=== PATIENT | male | born 1950 | race Caucasian/White ===

== ENCOUNTER 2018-11-12 09:09 | Emergency (ER) | payer BC, MEDICARE ==
--- NOTE | 2018-11-12 09:33 | UC ---
General HPI - HPI Summary HPI Summary: 68 yo gentleman presents to [facility] c/o numbness funny feeling in L low lip last evening. Not sure if primary or if possibly related to having had topical numbing medicine on finger and touched lip. However, this morning noted R ( contralateral) facial weakness, numbness, can't close eye completely, prompting him to drive here. Took alleve x 1 approx 8am (with power bar and water). No n /a, vis / aud changes. No rash. No GI issues. No sob / cp. Was [place] the [place] 2 weeks ago, developed short lived "flu like" symptoms, but did not notice a tick or rash. Hx chicken pox mid 20's. Fam hx father dec (+ cad + ca + tob). No loc. - History of Current Complaint Stated Complaint: NUMBNESS IN LIP,TROUBLE SMILING Time Seen by Provider: 11/12/18 09:15 Hx Obtained From: Patient - Allergy/Home Medications Allergies/Adverse Reactions: Allergies Allergy/AdvReac Type Severity Reaction Status Date / Time ciprofloxacin Allergy Muscle Ache Verified 11/12/18 09:49 levaquin Allergy Muscle Ache Uncoded 11/12/18 09:49 seasonal allergies Allergy Runny Nose Uncoded 04/26/15 12:48 Home Medications: Home Medications Naproxen Sodium [Naproxen 220 mg] 220 mg PO SEE INSTRUCTIONS PRN 11/12/18 [ History Confirmed 11/12/18] PMH/Surg Hx/FS Hx/Imm Hx Previously Healthy: Yes - Surgical History Surgical History: Yes Surgery Procedure, Year, and Place: Polypectomy, nose, [facility] Dr Islas - Family History Known Family History: Positive: Cardiac Disease - Social History Alcohol Use: Daily Alcohol Amount: glass of red wine daily Substance Use Type: None Smoking Status (MU): Never Smoked Tobacco - Immunization History Most Recent Influenza Vaccination: Fall 2014 Review of Systems All Other Systems Reviewed And Are Negative: Yes Constitutional: Positive: Other - see hpi Skin: Positive: Negative Eyes: Positive: Other - see hpi ENT: Positive: Other - see hpi Respiratory: Positive: Negative Cardiovascular: Positive: Negative Gastrointestinal: Positive: Negative Genitourinary: Positive: Negative Motor: Positive: Other - see hpi Neurovascular: Positive: Other - see hpi Musculoskeletal: Positive: Other: - see hpi Neurological: Positive: Other - see hpi Psychological: Positive: Negative Is Patient Immunocompromised?: No Physical Exam Triage Information Reviewed: Yes Appearance: Well-Appearing, Well-Nourished Vital Signs Reviewed: Yes Eye Exam: Other - perrla eomi sw cp, no nystagmus fundi grossly benign ENT Exam: Other - R facial droop, R eye does not close complete, eye is a little watery. Sens to LT x facial dermatomes is presents to both R and L ( without subjective dysesthesia). Forehead is wrinkled bilaterally, although there appears to be some forehead sparing. Able to bite down and swallow ok. Tongue protrudes well, and to both sides. ENT: Positive: Pharynx normal, TMs normal, Other - mmm Neck exam: Normal Neck: Positive: Supple, Nontender, No Lymphadenopathy Respiratory Exam: Normal Respiratory: Positive: Chest non-tender, Lungs clear, Normal breath sounds, No respiratory distress Cardiovascular Exam: Normal Cardiovascular: Positive: RRR, No Murmur, Pulses Normal, Brisk Capillary Refill Abdominal Exam: Normal Abdomen Description: Positive: Nontender Musculoskeletal Exam: Other - see facial exam. Neurological Exam: Other - Self-ambulated (walked) in to [facility]. Moves x 4 ext's equally. Ax n sens LT is present. Good hand grasp, "ok" index and 5th fingers. Distal sens LT present BLE strength incl great toe dorsi plantar flexion good. Some venous varicosities, but wtihout sign edema. CN-s 1-12 present (incl + smell to alcohol swab), with the exception of facial droop as above Psychological Exam: Normal Skin Exam: Normal - no visible or reported rash. nondiaphoretic Course/Dx - Course Course Of Treatment: EKG sr at 82 bpm, lad. low votage, ext leas. pr 160 qtc 427 no old for comp S/sx are concerning - R facial droop, with some forehead sparing. However, there was the presence of contralateral sx on L side last evening (Resolved). C /n exclude acute stroke, mass, atypical robertson's palsy, viral, even tick borne ( see hpi). Recommend transfer to ED. Mr. Henning carefully considered this, and agrees to go to ED via EMS. (EMS is necessary d/t possible stroke with time to treatment paramount, also possible deterioration if pov en routine which could be detrimental to him or other drivers). I spoke with CHANTELL Rutledge at [facility] ED prior to pt's departure. - Diagnoses Provider Diagnosis: Facial droop Discharge - Sign-Out/Discharge Documenting (check all that apply): Patient Departure All imaging exams completed and their final reports reviewed: No Studies - Discharge Plan Condition: Guarded Disposition: ADMITTED TO [facility] Referrals: Drake Marinelli MD [Primary Care Provider] - - Billing Disposition and Condition Condition: GUARDED Disposition: Admitted to [facility]
[2018-11-12] MEDS ORDERED: Aspirin 81 mg CHEW TAB* 81 MG TAB.CHEW PO ONE ×2 (09:58→11:17)
[2018-11-12 10:11] VITALS: BP 122/75
[2018-11-13] MEDS ORDERED: Aspirin 81 mg CHEW TAB* 81 MG TAB.CHEW PO SCH (09:00)
== END 2018-11-12 09:56 | disposition short-term general hospital (02) ==
LOC: UCCORT 09:09
DX: R29.810 Facial weakness (principal)
CPT/HCPCS: 93005; 99214; A9270-GY; G0463

== ENCOUNTER 2018-11-12 10:49 | Emergency (ER) | payer MEDICARE, BC ==
--- NOTE | 2018-11-12 11:20 | ED ---
Complex/Multi-Sys Presentation - HPI Summary HPI Summary: This pt is a 68 y/o male presenting to [facility] via EMS from [facility] c/o numbness in left lower lip 2 days ago and since last night right sided facial weakness and numbness. Pt reports he was using Icy Hot with lidocaine and he might have rubbed some of it on his left lower lip 2 days ago. He denies any other symptoms associated with this numbness 2 days ago and states numbness was very localized. Pt states numbness on left lower lip resolved within 12 hours. He notes that last night he first noticed his smile wasn't symmetrical. This morning he noticed he couldn't wink with his right eye, unable to fully close right eye. Pt states his daughter is a speech therapist and this morning he was monitoring his chewing and tongue. He reports he is usually able to whistle but now is not able to. Denies headache, fever, chills, rash, difficulty ambulating , difficulty moving arms or legs. Pt denies erythema of eyes, sore throat, CP, SOB, cough, abd pain, nausea, vomiting, dysuria, hematuria, myalgia, edema, rash , or dizziness. He denies any tick exposure recently. He has had tick exposure in the past but not any this year. Pt was in the [facility] 2 weeks ago for 10 days and notes he had "flu-like" symptoms towards the beginning of his stay. PMHx arthritis at hips, chicken pox at age 27. - History Of Current Complaint Hx Obtained From: Patient Onset/Duration: Lasting Hours, Still Present Timing: Hours Severity Currently: Mild Aggravating Factor(s): nothing Alleviating Factor(s): nothing Associated Signs And Symptoms: Positive: Weakness, Other - NEGATIVE: chills, rash, difficulty ambulating, difficulty moving arms or legs, erythema of eyes, sore throat, dysuria, hematuria, mylagia, edema, dizziness.. Negative: SOB, Cough, Chest Pain, Nausea, Vomiting, Abdominal Pain, Fever - Allergies/Home Medications Allergies/Adverse Reactions: Allergies Allergy/AdvReac Type Severity Reaction Status Date / Time ciprofloxacin Allergy Muscle Ache Verified 11/12/18 11:14 levaquin Allergy Muscle Ache Uncoded 11/12/18 09:49 seasonal allergies Allergy Runny Nose Uncoded 04/26/15 12:48 Home Medications: Home Medications Albuterol HFA INHALER* [Ventolin HFA Inhaler*] 2 puff INH Q4H PRN 11/12/18 [ History Confirmed 11/12/18] Calcium Carbonate [Calcium] 2 mg PO DAILY 11/12/18 [History Confirmed 11/12/18] Cholecalciferol (Vitamin D3) [D 5000] 15,000 unit PO WEEKLY 11/12/18 [History Confirmed 11/12/18] Fexofenadine (NF) [Marissa 180 (NF)] 180 mg PO DAILY 11/12/18 [History Confirmed 11/12/18] Fluticas/Salmet 115/21 HFA(NF) [Advair HFA 115/21 (NF)] 1 puff INH BID 11/12/18 [History Confirmed 11/12/18] LoraTADine TAB(NF) [Claritin 10 MG TAB(NF)] 10 mg PO DAILY 11/12/18 [History Confirmed 11/12/18] Magnesium Oxide [Magnesium 400 mg] 1 tab PO .1-2 TIMES DAILY 11/12/18 [History Confirmed 11/12/18] Multivitamins/Minerals TAB* [Theragran/minerals TAB*] 1 tab PO DAILY 11/12/18 [ History Confirmed 11/12/18] Naproxen Sodium [Aleve] 220 mg PO BID PRN 11/12/18 [History Confirmed 11/12/18] Ranitidine TAB (NF) [Zantac TAB (NF)] 150 mg PO BID 11/12/18 [History Confirmed 11/12/18] Sildenafil (NF) [Viagra (NF)] 100 mg PO DAILY PRN 11/12/18 [History Confirmed ] tiZANidine TAB* [Zanaflex TAB*] 2 mg PO TID PRN 11/12/18 [History Confirmed 12/23] traZODone TAB* [Desyrel TAB*] 25 - 50 mg PO BEDTIME 11/12/18 [History Confirmed 11/12/18] PMH/Surg Hx/FS Hx/Imm Hx Endocrine/Hematology History: Denies: Hx Diabetes, Hx Thyroid Disease Cardiovascular History: Denies: Hx Hypertension Respiratory History: Denies: Hx Asthma, Hx Chronic Obstructive Pulmonary Disease (COPD), Hx Lung Cancer GI History: Denies: Hx Ulcer Musculoskeletal History: Reports: Hx Arthritis - Surgical History Surgery Procedure, Year, and Place: Polypectomy, nose, [facility] Dr Islas Infectious Disease History: Denies: Hx Clostridium Difficile, Hx Hepatitis, Hx Human Immunodeficiency Virus (HIV), Hx of Known/Suspected MRSA, Hx Shingles, Hx Tuberculosis, Hx Known/ Suspected VRE, Hx Known/Suspected VRSA, History Other Infectious Disease - Family History Known Family History: Positive: Cardiac Disease - Social History Alcohol Use: Daily Alcohol Amount: glass of red wine daily Substance Use Type: Reports: None Smoking Status (MU): Never Smoked Tobacco Review of Systems Negative: Fever, Chills Negative: Erythema Negative: Sore Throat Negative: Chest Pain Negative: Shortness Of Breath, Cough Negative: Abdominal Pain, Vomiting, Nausea Negative: dysuria, hematuria Negative: Myalgia, Edema Negative: Rash Neurological: Other - NEGATIVE: dizziness Positive: Weakness, Numbness. Negative: Headache All Other Systems Reviewed And Are Negative: Yes Physical Exam - Summary Physical Exam Summary: Constitutional: Well-developed, Well-nourished, Alert. (-) Distressed Skin: Warm, Dry HENT: Normocephalic; Atraumatic Eyes: Conjunctiva normal Neck: Musculoskeletal ROM normal neck. (-) JVD, (-) Stridor, (-) Tracheal deviation Cardio: Rhythm regular, rate normal, Heart sounds normal; Intact distal pulses; The pedal pulses are 2+ and symmetric. Radial pulses are 2+ and symmetric. (-) Murmur Pulmonary/Chest wall: Effort normal. (-) Respiratory distress, (-) Wheezes, (-) Rales Abd: Soft. (-) Tenderness, (-) Distension, (-) Guarding, (-) Rebound Musculoskeletal: (-) Edema Lymph: (-) Cervical adenopathy Neuro: Alert, Oriented x3, He has some weakness of the right upper muscles, weakness of eyebrow lift on the right, right sided facial paralysis, Cranial nerves are otherwise intact. (-) Dysmetria, (-) Nystagmus, (-) Ataxia by finger to nose testing, (-) Sensory deficit. Psych: Mood and affect Normal Triage Information Reviewed: Yes Vital Signs Reviewed: Yes - Jose Guadalupe Coma Scale Best Eye Response: 4 - Spontaneous Best Motor Response: 6 - Obeys Commands Best Verbal Response: 5 - Oriented Coma Scale Total: 15 Diagnostics - Laboratory Result Diagrams: 11/12/18 11:43 11/12/18 11:43 Lab Statement: Any lab studies that have been ordered have been reviewed, and results considered in the medical decision making process. - CT Brain CT CT Interpretation Completed By: Radiologist Summary of CT Findings: IMPRESSION: No acute intracranial abnormality by CT ( MRI is more sensitive for acute infarct). Dr. Flores has reviewed this report. - EKG 11:33 Cardiac Rate: NL - at 76 bpm EKG Rhythm: Sinus Rhythm Summary of EKG Findings: No STEMI. Re-Evaluation - Re-Evaluation First Eval Re-Evaluation Time: 14:30 Comment: Dr. Avendano, neurologist, at bedside. Complex Multi-Symp Course/Dx Assessment/Plan: Pt is a 68 y/o male presenting to [facility] c/o numbness in left lower lip 2 days ago and since last night right sided facial weakness and numbness. PMHx arthritis, chicken pox at age 27. He denies any tick exposure recently. Blood work unremarkable except for AST of 41, ALT of 85. Brain CT is negative for an acute intracranial abnormality. In the ED course the pt was given prednisone. Patient was evaluated in the ED by Dr. Avendano, neurologist. Patient will be discharged home with follow up from his PCP in 2-3 days. He was given prescriptions for prednisone and Valacyclovir. Lyme testing is pending at time of discharge. Patient is instructed to return to the ED for any worsening or new symptoms. - Diagnoses Provider Diagnoses: Cheek's palsy - Physician Notifications Discussed Care Of Patient With: Alyson Avendano Time Discussed With Above Provider: 11:25 Instructed by Provider To: Other - Discussed with Dr. Avendano, neurologist, who will come see the pt in the ED. Discharge - Sign-Out/Discharge Documenting (check all that apply): Patient Departure - Discharge home Patient Received Moderate/Deep Sedation with Procedure: No - Discharge Plan Condition: Stable Disposition: HOME Prescriptions: predniSONE TAB* [Deltasone 20 MG TAB*] 60 mg PO DAILY #1 bottle ValACYclovir (*) [Valtrex 1 GM(*)] 1 gm PO TID #21 tab Patient Education Materials: Cheek Palsy (ED) Referrals: Drake Marinelli MD [Primary Care Provider] - Additional Instructions: Follow up with your primary care provider in 2-3 days. RETURN TO THE EMERGENCY DEPARTMENT FOR CHANGING OR WORSENING SYMPTOMS. - Attestation Statements Document Initiated by Scribe: Yes Documenting Scribe: Pari Guillermo Provider For Whom Scribe is Documenting (Include Credential): Scott Flores MD Scribe Attestation: Pari Adame, scribed for Scott Flores MD on 11/12/18 at 1446. Status of Scribe Document: Ready
[2018-11-12 11:59] LABS: ABS Basophils 0.1 10^3/ul (0-0.2); ABS Lymphocytes 0.7 10^3/ul (1.0-4.8); ABS Monocytes 0.6 10^3/ul (0-0.8); ABS Neutrophils 6.1 10^3/ul (1.5-7.7); Eosinophil % 0.4 %; Hematocrit 41 % (42-52); Hemoglobin 13.8 g/dL (14.0-18.0); Lymphocyte % 9.1 %; Mean Corpuscular HGB Conc 34 g/dL (31-36); Mean Corpuscular Hemoglobin 32 pg (27-31); Mean Corpuscular Volume 95 fL (80-94); Mean Platelet Volume 7.1 fL (7.4-10.4); Platelet Count 249 10^3/uL (150-450); Red Blood Count 4.27 10^6 /uL (4.18-5.48); Red Cell Distribution Width 14 % (10-15); White Blood Count 7.6 10^3/uL (3.5-10.8)
[2018-11-12 12:12] LABS: Activated Partial Thrombo Time 33.5 seconds (26.0-38.0); INR 0.99 (0.82-1.09)
[2018-11-12 12:16] LABS: Albumin 3.4 g/dL (3.2-5.2); Albumin/Globulin Ratio 0.9 (1-3); BUN/Creatinine Ratio 18.6 (8-20); Calcium 9.1 mg/dL (8.6-10.3); EGFR African American 88.1 (>60); EGFR Non-African American 72.8 (>60); Globulin 3.6 g/dL (2-4); HDL Cholesterol 34.5 mg/dL; Potassium 4.2 mmol/L (3.5-5.0); Total Bilirubin 0.4 mg/dL (0.2-1.0)
[2018-11-12] MEDS ORDERED: predniSONE TAB* 20 MG PO ONE (12:58)
[2018-11-12 13:33] LABS: Urine Appearance Clear; Urine Bilirubin Negative (Negative); Urine Blood Negative (Negative); Urine Color Yellow; Urine Glucose Negative (Negative); Urine Ketones Negative (Negative); Urine Nitrite Negative (Negative); Urine Protein Negative (Negative); Urine Specific Gravity 1.005 (1.010-1.030); Urine Urobilinogen Negative (Negative)
[2018-11-12] MEDS ORDERED: ValACYclovir (*) 1 GM TAB PO ONE (14:36)
[2018-11-12 15:18] VITALS: BP 132/68
--- NOTE | 2018-11-12 18:27 | CONS ---
NEUROLOGY CONSULTATION NOTE: DATE OF CONSULT: 11/12/18 CONSULTING PROVIDER: Dr. Flores. CHIEF COMPLAINT: Facial weakness. HISTORY OF PRESENT ILLNESS: Mr. Juan Henning is a 68-year-old man who developed right facial weakness. Onset of symptoms was last night on 11/11/18 approximately at 8 p.m. He noticed that his right face is droopy and puffy. He was having trouble puffing his lips or whistling. He has trouble winking on the right side. He was also noticing that his food was being trapped in the right from the inner cheek area in between his teeth and the cheeks. He had a buzzing sensation in the left ear. He has not had any changes in taste. He denies any weakness or paresthesias in the extremities. He had some numbness 3 days ago after changing the ice and hot lidocaine patch for his shoulder and he may have touched his lips. He noticed tingling of the lips on the left side. That resolved after 12 hours. He denied any visual disturbance, tinnitus, double vision, vertigo, or lightheadedness. He denied any speech abnormality or swallowing difficulties. The patient does live near the [facility]. He had high risk for tick exposure. He does not have any pets. The patient also stated that he had an upper respiratory tract infection 3 weeks ago when he was at [facility]. PAST MEDICAL HISTORY: 1. Osteoarthritis. 2. Spasms on the low back and the hips. 3. Vitiligo. PAST SURGICAL HISTORY: Polypectomy. MEDICATIONS: 1. Calcium carbonate mg p.o. daily. 2. Trazodone 25-50 mg p.o. at bedtime. 3. Magnesium 1 tablet 1 to 2 times daily. 4. Fexofenadine 180 mg p.o. daily. 5. Ranitidine 150 mg p.o. b.i.d. 6. Multivitamins. 7. Sildenafil 100 mg p.o. daily. 8. Loratadine 10 mg p.o. daily. 9. Naproxen 220 mg p.o. b.i.d. p.r.n. 10. Albuterol 2 puffs inhaled every 4 hours as needed. 11. Tizanidine 2 mg p.o. t.i.d. 12. Vitamin D. 13. Advair. ALLERGIES: CIPROFLOXACIN. SOCIAL HISTORY: Retired. Denied tobacco use. Drinks alcohol occasionally. FAMILY HISTORY: His father was a smoker and of lung cancer. His mother was overweight and had diabetes mellitus type 2. REVIEW OF SYSTEMS: A 14-point review of systems was obtained and otherwise negative except for what was mentioned in the HPI. PHYSICAL EXAMINATION: Vitals: Temperature of 98.6, pulse of 79, respiratory rate of 16, oxygen saturation of 97%, blood pressure 110/88. General: Well- nourished, well-developed man, in no acute distress. Head is atraumatic, normocephalic without any obvious abnormality. Face: No rash or vesicular lesions. Neck is supple and symmetrical with no carotid bruits. Respiratory: Clear to auscultation bilaterally. No rhonchi or wheezing. Cardiovascular: Regular rate and rhythm with normal S1, S2. No murmurs. Extremities: Normal range of motion. No hammertoes or high arches. No skin lesions or lacerations. Psych: Affect is broad. Normal mood. Easy to establish a rapport. Neurological Examination: Mental status: Awake, alert, oriented to person, place, time, and general circumstance. Language and speech including expression, comprehension, and repetition were assessed and found to be normal. Cranial nerves: Normal confrontation testing bilaterally. Pupils are equal, round, and reactive to light, extraocular muscles are intact. There is normal sensation to light touch and pinprick bilaterally. Right facial droop with lower motor neuron weakness and weakness to the platysma muscle on the right and he is able to hear throughout the history taken, no vesicles in the inner ear on otoscopic examination, tongue is symmetrically midline with no fasciculation or atrophy. Motor Examination: A 5/5 strength in the upper and lower extremities bilaterally. Normal tone throughout. Reflexes: 2+ in biceps , triceps, and brachioradialis bilaterally, 3+ at the knees bilaterally and 2+ at the ankles bilaterally. Downgoing plantar response. Sensation is intact to light throughout. Normal vibration at the great toes bilaterally. Coordination : Normal [id number]-[id number] and vypt-[id number] testing bilaterally. Gait: Normal Stance and posture. No ataxia. House-Brackmann score of 3. DIAGNOSTIC STUDIES/LAB DATA: Labs, imaging, and other diagnostic testing: WBC 7.6, hemoglobin of 13.8, hematocrit of 41, platelet count of 249. INR 0.99. Sodium 136, potassium 4.2, chloride of 103, carbon dioxide of 25, BUN of 19, glucose of 100. Lactic acid of 1.1. LDL of 117. Urinalysis negative for pyuria. CT head without contrast was completed on 11/12/18 and showed no evidence of acute intracranial abnormalities. I personally reviewed the study. IMPRESSION AND RECOMMENDATIONS: Mr. Juan Henning is a 68-year-old man with new onset of lower motor neuron facial weakness without any rash or vesicles. Right Cheek's palsy (LMN facial weakness): Please send out Lyme screen. Start the patient on valacyclovir 1000 mg t.i.d. and prednisone 60 mg daily for 7 days. I encouraged the patient to stay hydrated while on valacyclovir. I encouraged the patient to follow up on the Lyme titer with his PCP. If the Lyme titer is positive, please discontinue the steroids and acyclovir and start the patient on doxycycline. We discussed the importance of eye care. Please provide prescription for Lacri-Lube ointment to be placed at nighttime before sleeping on the right side. We discussed eye patching with the patient and his spouse at bedside. The patient has a House- Brackmann score of 3. I informed him that his facial weakness may get worse before it gets better. If he develops any new neurological symptoms such as headaches, paresthesias, or a rash to come back to the ER immediately. [id number]/[facility] #: [id number] MTDD
--- NOTE | 2018-11-15 09:36 | PN ---
Progress Note - Progress Note Date of Service: 11/12/18 Note: Called patient at 9:30 AM to make aware of results Patient had positive lyme test with dx of bells palsy Patient was placed on Valtrex and prednisone Due to positive Lyme test, he will be treated with 21 days of doxycycline He is recommended to follow-up with Dr. Yoo and phone number and address were given to the patient He will continue his tapered dose of prednisone, although patient states he will do this somewhat quicker as he does not require this He will discontinue Valtrex He will continue to follow up with his primary care as well as Dr. Yoo
== END 2018-11-12 15:17 | disposition home or self-care (01) ==
LOC: ED 10:49
DX: G51.0 Bell's palsy (principal); M19.90 Unspecified osteoarthritis, unspecified site; Z79.899 Other long term (current) drug therapy; Z88.1 Allergy status to other antibiotic agents
CPT/HCPCS: 36415; 70450; 80053; 80061; 81003; 83605; 85025; 85610; 85730; 86617; 86618; 93005; 99214; 99284; A9270-GY; G0463; J7512